=== PATIENT | female | born 1980 | race African-American/Black ===

== ENCOUNTER 2016-10-05 13:30 | Emergency (ER) | payer MEDICAID ==
[~2016-10-05] VITALS: Ht 144.8 cm; Wt 87.5 kg
[2016-10-05] MEDS ORDERED: [UNRECOGNIZED DRUG - REMARK] (13:40)
[2016-10-05] MEDS ORDERED: LAMICTAL25 MG ORAL (13:40)
[2016-10-05] MEDS ORDERED: PRAVACHOL20 MG ORAL (13:40)
[2016-10-05] MEDS ORDERED: AMLODIPINE BES2.5 MG ORAL (13:40)
[2016-10-05] MEDS ORDERED: KEPPRA500 M4 ORAL (13:40)
[2016-10-05] MEDS ORDERED: LORazepam Inj 2mg/ml 1ml IM ONE ×2 (13:45→14:00)
--- NOTE | 2016-10-05 13:51 | Emergency Room Report ---
History of Present Illness General Chief Complaint: Seizure Source: Patient, Significant Other Present Illness HPI Patient 36-year-old female presented after increased have a generalized motor movements. Patient reportedly had increased shakiness this morning. Patient prior history of seizure disorder. She been taking Keppra for seizures. She reports taking Keppra. The patient had been vomiting. She had not been having any fever. Allergies: Coded Allergies: No Known Allergies (Verified , 09/29/07) Patient History Past Medical History: see triage record Last Menstrual Period: Four months ago Depo Now: No Reviewed Nursing Documentation: PMH: Agreed, PSxH: Agreed Nursing Documentation-PMH Hx Hypertension: Yes Hx Seizures: Yes Review of Systems All Other Systems: limited - by poor historian Physical Exam Vital Signs Date Time Temp Pulse Resp B/P (MAP) Pulse Ox O2 Delivery O2 Flow Rate FiO2 10/05/16 13:34 Room Air Sp02 EP Interpretation: reviewed, normal General Appearance: normal inspection, alert, non-toxic, mild distress Head: atraumatic ENT: normal ENT inspection, hearing grossly normal, normal voice Neck: normal inspection, full range of motion, supple, no bony tend Respiratory: normal inspection, lungs clear, normal breath sounds, no respiratory distress, no retraction, no wheezing Cardiovascular #1: regular rate, rhythm, no edema Gastrointestinal: normal inspection, normal bowel sounds, non tender, soft, no guarding, no hernia Genitourinary: no CVA tenderness Musculoskeletal: normal inspection, back normal, normal range of motion Neurologic: normal inspection, alert, responsive, 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 Differential diagnosis included cysticercosis, electrolyte abnormality, pseudoseizure, partial seizure, mass lesion, or cranial hemorrhage. Labs Test 10/05/16 13:55 10/05/16 14:50 White Blood Count 7.7 K/UL (4.8-10.8) Red Blood Count 5.14 M/UL (4.20-5.40) Hemoglobin 15.6 G/DL (12.0-16.0) Hematocrit 46.1 % (37.0-47.0) Mean Corpuscular Volume 90 FL (80-99) Mean Corpuscular Hemoglobin 30.3 PG (27.0-31.0) Mean Corpuscular Hemoglobin Concent 33.8 G/DL (32.0-36.0) Red Cell Distribution Width 11.1 % (11.6-14.8) Platelet Count 229 K/UL (150-450) Mean Platelet Volume 7.9 FL (6.5-10.1) Neutrophils (%) (Auto) 61.9 % (45.0-75.0) Lymphocytes (%) (Auto) 29.8 % (20.0-45.0) Monocytes (%) (Auto) 6.1 % (1.0-10.0) Eosinophils (%) (Auto) 1.2 % (0.0-3.0) Basophils (%) (Auto) 1.1 % (0.0-2.0) Sodium Level 133 mEQ/L (135-145) Potassium Level 2.7 mEQ/L (3.4-4.9) Chloride Level 90 mEQ/L (98-107) Carbon Dioxide Level 25 mEQ/L (20-30) Anion Gap 18 (5-15) Blood Urea Nitrogen 10 mg/dL (7-23) Creatinine 0.8 mg/dL (0.5-0.9) Estimat Glomerular Filtration Rate > 60 mL/min (>60) Glucose Level 424 mg/dL (74-106) Calcium Level 9.4 mg/dL (8.6-10.2) Total Bilirubin 0.8 mg/dL (0.0-1.2) Aspartate Amino Transf (AST/SGOT) 10 U/L (5-40) Alanine Aminotransferase (ALT/SGPT) 7 U/L (3-33) Alkaline Phosphatase 80 U/L (35-104) Total Protein 7.8 g/dL (6.6-8.7) Albumin 4.8 g/dL (3.5-5.2) Globulin 3.0 g/dL Albumin/Globulin Ratio 1.6 (1.0-2.7) EKG Diagnostic Results Rate: tachycardiac Rhythm: NSR ST Segments: no acute changes Rhythm Strip Diag. Results EP Interpretation: yes Rhythm: NSR - 121, no PVC's, no ectopy Last Vital Signs Date Time Temp Pulse Resp B/P (MAP) Pulse Ox O2 Delivery O2 Flow Rate FiO2 10/05/16 13:34 Room Air Status: unchanged Disposition: ADMITTED INPATIENT Condition: Serious IgnacioMiguel Oct 05, 2016 13:51
[2016-10-05] MEDS ORDERED: DiphenhydrAMINE 50mg/ml Inj IVP ONE (14:00)
[2016-10-05 14:14] LABS: BASOPHILS % (AUTO) 1.1 % (0.0-2.0); EOSINOPHILS % (AUTO) 1.2 % (0.0-3.0); LYMPHOCYTES % (AUTO) 29.8 % (20.0-45.0); MEAN CORPUSCULAR HEMOGLOBIN 30.3 PG (27.0-31.0); MEAN CORPUSCULAR HGB CONC 33.8 G/DL (32.0-36.0); MEAN CORPUSCULAR VOLUME 90 FL (80-99); MEAN PLATELET VOLUME 7.9 FL (6.5-10.1); MONOCYTES % (AUTO) 6.1 % (1.0-10.0); NEUTROPHILS % (AUTO) 61.9 % (45.0-75.0); PLATELET COUNT 229 K/UL (150-450); RED BLOOD COUNT 5.14 M/UL (4.20-5.40); RED CELL DISTRIBUTION WIDTH 11.1 % (11.6-14.8); WHITE BLOOD COUNT 7.7 K/UL (4.8-10.8)
[2016-10-05 14:28] VITALS: BP 126/94
[2016-10-05 15:18] LABS: ALANINE AMINOTRANSFERASE 7 U/L (3-33); ALBUMIN/GLOBULIN RATIO 1.6 (1.0-2.7); ANION GAP 18 (5-15); ASPARTATE AMINO TRANSFERASE 10 U/L (5-40); CALCIUM 9.4 mg/dL (8.6-10.2); CARBON DIOXIDE 25 mEQ/L (20-30); CHLORIDE 90 mEQ/L (98-107); CREATININE 0.8 mg/dL (0.5-0.9); GLOMERULAR FILTRATION RATE > 60 mL/min (>60); HEMOLYSIS 11; SODIUM 133 mEQ/L (135-145); TOTAL PROTEIN 7.8 g/dL (6.6-8.7)
[2016-10-05 15:21] LABS: POTASSIUM 2.7 mEQ/L (3.4-4.9)
[2016-10-05] MEDS ORDERED: Miralax 17gm pkt ORAL PRN (18:30)
[2016-10-05] MEDS ORDERED: Mylanta II UD 30ml ORAL PRN (18:30)
[2016-10-05] MEDS ORDERED: LORazepam Inj 2mg/ml 1ml IV PRN (18:30)
[2016-10-05] MEDS ORDERED: Morphine Sulfate 2mg/ml Inj IVP PRN (18:30)
[2016-10-05] MEDS ORDERED: Zolpidem 5mg tab ORAL PRN (18:30)
[2016-10-05 18:57] VITALS: BP 109/93
[2016-10-05] MEDS ORDERED: Heparin 5000 units/ml inj SUBQ SCH (21:00)
== END 2016-10-05 19:07 | disposition short-term general hospital (02) ==
LOC: EMR 13:45
DX: G40.909 Epilepsy, unspecified, not intractable, without status epilepticus (principal); I10 Essential (primary) hypertension; R00.0 Tachycardia, unspecified
CPT/HCPCS: 36415; 80053; 82962; 85025; 96360; 96361; 96372; 96375; 99285; J1200; J3480; J8499

== ENCOUNTER 2016-10-11 18:31 | Inpatient (IN) | payer MEDICAID ==
[~2016-10-11] VITALS: Ht 162.6 cm; Wt 85.7 kg
[2016-10-11 18:25] VITALS: BP 130/90
[~2016-10-11 18:31] MED LIST: AMLODIPINE BES2.5 MG ORAL; KEPPRA500 M4 ORAL; LAMICTAL25 MG ORAL; LORazepam Inj 2mg/ml 1ml IV ONE; PRAVACHOL20 MG ORAL; [UNRECOGNIZED DRUG - REMARK]; levETIRAcetam 500 MG in D5W 110 ML IV ONE
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
[2016-10-11] MEDS ORDERED: levETIRAcetam 500mg vial IV ONE (18:34)
[2016-10-11 19:05] VITALS: BP 142/86
[2016-10-11 20:14] LABS: ALANINE AMINOTRANSFERASE 6 U/L (3-33); ALBUMIN/GLOBULIN RATIO 1.4 (1.0-2.7); ANION GAP 15 (5-15); ASPARTATE AMINO TRANSFERASE 12 U/L (5-40); CALCIUM 10.3 mg/dL (8.6-10.2); CARBON DIOXIDE 26 mEQ/L (20-30); CHLORIDE 90 mEQ/L (98-107); CREATININE 0.9 mg/dL (0.5-0.9); GLOMERULAR FILTRATION RATE > 60 mL/min (>60); HEMOLYSIS 57; POTASSIUM 3.4 mEQ/L (3.4-4.9); SODIUM 131 mEQ/L (135-145); TOTAL PROTEIN 7.7 g/dL (6.6-8.7); VALPROIC ACID < 3 ug/mL (50-100)
[2016-10-11] MEDS ORDERED: LORazepam Inj 2mg/ml 1ml IV ONE ×2 (20:30→22:45)
[2016-10-11] MEDS ORDERED: Mylanta II UD 30ml ORAL PRN (21:15)
[2016-10-11] MEDS ORDERED: LORazepam Inj 2mg/ml 1ml IV PRN (21:15)
[2016-10-11] MEDS ORDERED: Zolpidem 5mg tab ORAL PRN (21:15)
[2016-10-11] MEDS ORDERED: Miralax 17gm pkt ORAL PRN (21:15)
[2016-10-11 21:16] LABS: BASOPHILS % (AUTO) 1.4 % (0.0-2.0); EOSINOPHILS % (AUTO) 2.4 % (0.0-3.0); LYMPHOCYTES % (AUTO) 26.8 % (20.0-45.0); MEAN CORPUSCULAR HEMOGLOBIN 31.2 PG (27.0-31.0); MEAN CORPUSCULAR HGB CONC 34.1 G/DL (32.0-36.0); MEAN CORPUSCULAR VOLUME 91 FL (80-99); MEAN PLATELET VOLUME 7.6 FL (6.5-10.1); MONOCYTES % (AUTO) 5.3 % (1.0-10.0); NEUTROPHILS % (AUTO) 64.1 % (45.0-75.0); PLATELET COUNT 305 K/UL (150-450); RED BLOOD COUNT 4.85 M/UL (4.20-5.40); RED CELL DISTRIBUTION WIDTH 12.1 % (11.6-14.8); WHITE BLOOD COUNT 10.1 K/UL (4.8-10.8)
[2016-10-11] MEDS ORDERED: CHLORTHALIDONE25 MG ORAL (21:57)
[2016-10-11] MEDS ORDERED: FLUOXETINE HCL10 MG ORAL (21:57)
[2016-10-11] MEDS ORDERED: LAMICTAL100 MG ORAL (21:57)
[2016-10-11] MEDS ORDERED: AMLODIPINE BESY10 MG ORAL (21:57)
[2016-10-11] MEDS ORDERED: FERROUS SULFAT325 MG ORAL (21:57)
[2016-10-11] MEDS ORDERED: PRAVASTATIN SOD20 M1 ORAL (21:57)
[2016-10-11] MEDS ORDERED: METFORMIN HCL500 M1 ORAL (21:57)
[2016-10-11] MEDS ORDERED: KEPPRA500 M4 ORAL (21:57)
[2016-10-11 22:10] VITALS: BP 145/91
[2016-10-11 23:00] VITALS: BP 140/72
[2016-10-12] MEDS ORDERED: LAMICTAL150 MG ORAL (01:14)
[2016-10-12] MEDS: Morphine Sulfate 2mg/ml Inj IVP PRN ×4 (03:47→23:11)
[2016-10-12 03:53] VITALS: BP 127/80
[2016-10-12 05:50] LABS: BASOPHILS % (AUTO) 0.7 % (0.0-2.0); EOSINOPHILS % (AUTO) 2.8 % (0.0-3.0); LYMPHOCYTES % (AUTO) 27.2 % (20.0-45.0); MEAN CORPUSCULAR HEMOGLOBIN 30.9 PG (27.0-31.0); MEAN CORPUSCULAR HGB CONC 33.7 G/DL (32.0-36.0); MEAN CORPUSCULAR VOLUME 92 FL (80-99); MEAN PLATELET VOLUME 6.9 FL (6.5-10.1); MONOCYTES % (AUTO) 7.3 % (1.0-10.0); NEUTROPHILS % (AUTO) 62.1 % (45.0-75.0); PLATELET COUNT 414 K/UL (150-450); RED BLOOD COUNT 4.46 M/UL (4.20-5.40); RED CELL DISTRIBUTION WIDTH 12.1 % (11.6-14.8)
[2016-10-12 05:55] LABS: ALANINE AMINOTRANSFERASE 5 U/L (3-33); ALBUMIN/GLOBULIN RATIO 1.3 (1.0-2.7); ANION GAP 16 (5-15); ASPARTATE AMINO TRANSFERASE 10 U/L (5-40); CALCIUM 9.4 mg/dL (8.6-10.2); CARBON DIOXIDE 24 mEQ/L (20-30); CHLORIDE 97 mEQ/L (98-107); CREATININE 0.6 mg/dL (0.5-0.9); GLOMERULAR FILTRATION RATE > 60 mL/min (>60); HEMOLYSIS 5; POTASSIUM 2.9 mEQ/L (3.4-4.9); SODIUM 137 mEQ/L (135-145)
[2016-10-12 08:00] VITALS: BP 129/77
[2016-10-12] MEDS: Heparin 5000 units/ml inj SUBQ SCH ×2 (08:38→21:31)
--- NOTE | 2016-10-12 09:50 | Diagnostic Imaging Report ---
Indication: Seizure Technique: Contiguous 5 mm thick transaxial imaging of the head obtained in a Siemens Sensation [address] scanner. Soft tissue and bone windows generated. Total Dose length Product (DLP): [address] Dose Index Volume (CTDIvol): 70.38, 0.15 mGy Comparison: 10/12/14, 03/24/11 Findings: The size and configuration of the cortical sulci, basal cisterns, and ventricles are within normal limits for age. There is no mass effect, midline shift, or edema identified. There is no evidence of acute hemorrhage or abnormal extra-axial fluid collections. There is a tiny well-circumscribed cystic focus posterior aspect of the caudate possibly communicating with the anterior horn of the right lateral ventricle. The nature of this cystic focus is unknown. This could be a Virchow-Teo space which is a normal finding. This could be old lacunar infarct or other post-insult cystic focus. The finding is unchanged from 2012. The bones and soft tissues are unremarkable. Impression: No mass effect, edema or acute bleed. 4 mm cystic focus posterior aspect of the right caudate. Unchanged from 2014 and 2012. Discussion as above The CT scanner at [facility] is accredited by the [employer] and the scans are performed using dose optimization techniques as appropriate to a performed exam including Automatic Exposure control.
--- NOTE | 2016-10-12 10:56 | History and Physical ---
History of Present Illness General Date patient seen: Oct 12, 2016 Reason for Hospitalization: Seizure Present Illness HPI 36 year old female with hx of chronic seizures on lamictal, keppafor a few years brought in for uncontrolled seizures. she was given IM versed 5mg by paramedics which stopped initial seizure, but she continued seizure en route described as mild shaking of extremities She is admitted for uncontrolled seizures. Allergies: Coded Allergies: No Known Allergies (Verified , 09/29/07) UNABLE TO ASSESS (Unverified , 10/11/16) Medication History Scheduled Amlodipine Besylate* (Amlodipine Besylate*), Unknown Dose ORAL DAILY, (Reported) Amlodipine Besylate* (Amlodipine Besylate*), 10 MG ORAL DAILY, (Reported) Chlorthalidone* (Chlorthalidone*), 25 MG ORAL DAILY, (Reported) Ferrous Sulfate* (Ferrous Sulfate*), 325 MG ORAL THREE TIMES A DAY, (Reported) Fluoxetine Hcl* (Fluoxetine Hcl*), 10 MG ORAL DAILY, (Reported) Lamotrigine* (Lamictal*), Unknown Dose ORAL HS, (Reported) Lamotrigine* (Lamictal*), 100 MG ORAL DAILY, (Reported) Lamotrigine* (Lamictal*), 200 MG ORAL QPM, (Reported) Levetiracetam (Keppra), 500 MG ORAL EVERY 12 HOURS, (Reported) Metformin Hcl* (Metformin Hcl*), 500 MG ORAL TWICE A DAY, (Reported) Pravastatin Sod* (Pravastatin Sod*), 40 MG ORAL BEDTIME, (Reported) Miscellaneous Medications ["water pill"], (Reported) Patient History Healthcare decision maker N Resuscitation status Full Code Advanced Directive on File Past Medical/Surgical History Past Medical/Surgical History: (1) Seizure disorder (2) Hyperglycemia Review of Systems All Other Systems: negative except mentioned in HPI Physical Exam General Appearance: WD/WN Lines, tubes and drains: peripheral, central line HEENT: normocephalic, atraumatic Neck: non-tender, supple Respiratory/Chest: chest wall non-tender, lungs clear Breasts: no masses Cardiovascular/Chest: normal rate, regular rhythm, regularly irregular Abdomen: normal bowel sounds, non tender Genitourinary/Rectal: normal genital exam, normal rectal exam Extremities: normal range of motion Last 24 Hour Vital Signs Date Time Temp Pulse Resp B/P (MAP) Pulse Ox O2 Delivery O2 Flow Rate FiO2 10/12/16 08:36 104 127/80 10/12/16 08:00 101 10/12/16 08:00 97.9 102 18 129/77 99 Nasal Cannula 2.0 10/12/16 03:53 97.5 104 19 127/80 99 Non-Rebreather 15.0 10/12/16 03:50 109 10/12/16 00:01 102 10/11/16 23:00 97.2 113 20 140/72 100 Non-Rebreather 15.0 10/11/16 22:47 105 23 145/91 100 Non-Rebreather 15.0 10/11/16 22:10 105 23 145/91 100 Non-Rebreather 15.0 10/11/16 19:05 104 18 142/86 100 Non-Rebreather 15.0 10/11/16 18:25 118 18 130/90 100 Room Air 10/11/16 18:25 118 18 130/90 100 Room Air 10/11/16 18:25 118 18 Room Air Laboratory Tests Test 10/11/16 19:00 10/11/16 21:05 10/12/16 04:05 Sodium Level 131 mEQ/L (135-145) L 137 mEQ/L (135-145) Potassium Level 3.4 mEQ/L (3.4-4.9) 2.9 mEQ/L (3.4-4.9) L Chloride Level 90 mEQ/L (98-107) L 97 mEQ/L (98-107) L Carbon Dioxide Level 26 mEQ/L (20-30) 24 mEQ/L (20-30) Anion Gap 15 (5-15) 16 (5-15) H Blood Urea Nitrogen 9 mg/dL (7-23) 6 mg/dL (7-23) L Creatinine 0.9 mg/dL (0.5-0.9) 0.6 mg/dL (0.5-0.9) Estimat Glomerular Filtration Rate > 60 mL/min (>60) > 60 mL/min (>60) Glucose Level 395 mg/dL (74-106) H 250 mg/dL (74-106) #H Calcium Level 10.3 mg/dL (8.6-10.2) H 9.4 mg/dL (8.6-10.2) Total Bilirubin 0.5 mg/dL (0.0-1.2) 0.5 mg/dL (0.0-1.2) Aspartate Amino Transf (AST/SGOT) 12 U/L (5-40) 10 U/L (5-40) Alanine Aminotransferase (ALT/SGPT) 6 U/L (3-33) 5 U/L (3-33) Alkaline Phosphatase 64 U/L (35-104) 62 U/L (35-104) Total Protein 7.7 g/dL (6.6-8.7) 7.0 g/dL (6.6-8.7) Albumin 4.6 g/dL (3.5-5.2) 4.0 g/dL (3.5-5.2) Globulin 3.1 g/dL 3.0 g/dL Albumin/Globulin Ratio 1.4 (1.0-2.7) 1.3 (1.0-2.7) Valproic Acid (Depakene) Level < 3 ug/mL (50-100) L White Blood Count 10.1 K/UL (4.8-10.8) 9.0 K/UL (4.8-10.8) Red Blood Count 4.85 M/UL (4.20-5.40) 4.46 M/UL (4.20-5.40) Hemoglobin 15.1 G/DL (12.0-16.0) 13.8 G/DL (12.0-16.0) Hematocrit 44.4 % (37.0-47.0) 40.9 % (37.0-47.0) Mean Corpuscular Volume 91 FL (80-99) 92 FL (80-99) Mean Corpuscular Hemoglobin 31.2 PG (27.0-31.0) H 30.9 PG (27.0-31.0) Mean Corpuscular Hemoglobin Concent 34.1 G/DL (32.0-36.0) 33.7 G/DL (32.0-36.0) Red Cell Distribution Width 12.1 % (11.6-14.8) 12.1 % (11.6-14.8) Platelet Count 305 K/UL (150-450) 414 K/UL (150-450) Mean Platelet Volume 7.6 FL (6.5-10.1) 6.9 FL (6.5-10.1) Neutrophils (%) (Auto) 64.1 % (45.0-75.0) 62.1 % (45.0-75.0) Lymphocytes (%) (Auto) 26.8 % (20.0-45.0) 27.2 % (20.0-45.0) Monocytes (%) (Auto) 5.3 % (1.0-10.0) 7.3 % (1.0-10.0) Eosinophils (%) (Auto) 2.4 % (0.0-3.0) 2.8 % (0.0-3.0) Basophils (%) (Auto) 1.4 % (0.0-2.0) 0.7 % (0.0-2.0) Height (Feet): 5 Height (Inches): 4.00 Weight (Pounds): 189 Medications Current Medications Medications (Trade) Dose Ordered Sig/Dylan Route PRN Reason Start Time Stop Time Status Last Admin Dose Admin Acetaminophen (Tylenol) 650 mg Q4H PRN ORAL fever 10/11/16 21:15 11/10/16 21:14 Al Hydroxide/Mg Hydroxide (Mylanta II) 30 ml Q6H PRN ORAL dyspepsia 10/11/16 21:15 11/10/16 21:14 Amlodipine Besylate (Norvasc) 5 mg DAILY ORAL 10/12/16 09:00 11/11/16 08:59 10/12/16 08:36 Dextrose (Dextrose 50%) STAT PRN IV Hypoglycemia 10/11/16 21:15 11/10/16 21:14 Dextrose (Dextrose 50%) STAT PRN IV Hypoglycemia 10/12/16 08:30 11/11/16 08:29 Heparin Sodium (Porcine) (Heparin 5000 units/ml) 5,000 units EVERY 12 HOURS SUBQ 10/12/16 09:00 11/11/16 08:59 10/12/16 08:38 Insulin Aspart (NovoLOG) BEFORE MEALS AND HS SUBQ 10/12/16 11:30 11/11/16 11:29 Levetiracetam (Keppra) 500 mg EVERY 12 HOURS ORAL 10/12/16 09:00 11/11/16 08:59 10/12/16 08:36 Lorazepam (Ativan 2mg/ml 1ml) 2 mg Q1H PRN IV seizures 10/11/16 21:15 10/18/16 21:14 Morphine Sulfate (Morphine Sulfate) 1 mg Q4H PRN IVP For Pain 10/11/16 21:15 10/18/16 21:14 10/12/16 10:37 Ondansetron HCl (Zofran) 4 mg Q6H PRN IVP Nausea & Vomiting 10/11/16 21:15 11/10/16 21:14 Polyethylene Glycol (Miralax) 17 gm HSPRN PRN ORAL Constipation 10/11/16 21:15 11/10/16 21:14 Zolpidem Tartrate (Ambien) 5 mg HSPRN PRN ORAL Insomnia 10/11/16 21:15 10/18/16 21:14 Assessment/Plan Problem List: (1) Uncontrolled seizures ICD Codes: R56.9 - Unspecified convulsions SNOMED: 12973394 (2) Diabetes mellitus ICD Codes: E11.9 - Type 2 diabetes mellitus without complications SNOMED: 48862275 (3) HTN (hypertension) ICD Codes: I10 - Essential (primary) hypertension SNOMED: 43965881 Assessment/Plan Neuro evaluation sliding scale resume previous seizure meds dc home when cleared by neuro. KIM MOORE Oct 12, 2016 10:56
--- NOTE | 2016-10-12 11:09 | Diagnostic Imaging Report ---
Indication: Dyspnea Comparison: 10/12/14 A single view chest radiograph was obtained. Findings: The heart is prominent in size. Lung volumes are low. No obvious infiltrate identified. Bones are unremarkable. Impression: No acute disease
[2016-10-12 12:00] VITALS: BP 118/80
[2016-10-12] MEDS: NovoLOG Insulin Flexpen SUBQ SCH ×3 (12:04→21:00)
[2016-10-12 16:00] VITALS: BP 124/75
[2016-10-12] MEDS ORDERED: LaMICtal 150mg tab ORAL SCH (16:30)
[2016-10-12 20:00] VITALS: BP 131/82
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
[2016-10-13] VITALS: BP 120/74
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
[2016-10-13 04:00] VITALS: BP 128/88
[2016-10-13] MEDS: NovoLOG Insulin Flexpen SUBQ SCH ×4 (06:13→21:22)
[2016-10-13 08:00] VITALS: BP 124/94
[2016-10-13] MEDS: FLUoxetine 10mg cap ORAL SCH (08:57)
[2016-10-13] MEDS: Heparin 5000 units/ml inj SUBQ SCH ×2 (08:59→21:20)
--- NOTE | 2016-10-13 10:55 | Pulmonology Progress Note ---
Assessment/Plan Problems: (1) Uncontrolled seizures (2) Diabetes mellitus (3) HTN (hypertension) Assessment/Plan neuro consult appreciated meds adjusted dc home when ok with neuro. MRI pending. Subjective ROS Limited/Unobtainable: No Constitutional: Reports: no symptoms HEENT: Repors: no symptoms Respiratory: Reports: no symptoms Allergies: Coded Allergies: No Known Allergies (Verified , 09/29/07) UNABLE TO ASSESS (Unverified , 10/11/16) Objective Last 24 Hour Vital Signs Date Time Temp Pulse Resp B/P (MAP) Pulse Ox O2 Delivery O2 Flow Rate FiO2 10/13/16 08:57 84 128/88 10/13/16 08:00 86 10/13/16 08:00 97.5 98 20 124/94 98 Room Air 10/13/16 04:00 98.3 98 20 128/88 98 Nasal Cannula 2.0 10/13/16 04:00 84 10/13/16 00:00 97.9 16 120/74 99 Nasal Cannula 2.0 10/13/16 00:00 90 10/12/16 20:00 99 10/12/16 20:00 97.7 107 20 131/82 100 Nasal Cannula 2.0 10/12/16 19:18 98.1 10/12/16 16:34 98.1 10/12/16 16:00 102 10/12/16 16:00 98.1 67 20 124/75 100 Nasal Cannula 2.0 10/12/16 12:16 97 10/12/16 12:00 98.1 96 20 118/80 98 Nasal Cannula 2.0 General Appearance: WD/WN HEENT: normocephalic, atraumatic Respiratory/Chest: chest wall non-tender, lungs clear, chest wall tender Breasts: no masses Cardiovascular: regular rhythm Abdomen: soft, non tender Extremities: no cyanosis, no clubbing Current Medications Medications (Trade) Dose Ordered Sig/Dylan Route PRN Reason Start Time Stop Time Status Last Admin Dose Admin Acetaminophen (Tylenol) 650 mg Q4H PRN ORAL fever 10/11/16 21:15 11/10/16 21:14 10/13/16 02:47 Al Hydroxide/Mg Hydroxide (Mylanta II) 30 ml Q6H PRN ORAL dyspepsia 10/11/16 21:15 11/10/16 21:14 Amlodipine Besylate (Norvasc) 10 mg DAILY ORAL 10/13/16 09:00 11/12/16 08:59 10/13/16 08:57 Chlorthalidone (Chlorthalidone) 25 mg DAILY ORAL 10/13/16 09:00 11/12/16 08:59 10/13/16 08:56 Dextrose (Dextrose 50%) STAT PRN IV Hypoglycemia 10/11/16 21:15 11/10/16 21:14 Dextrose (Dextrose 50%) STAT PRN IV Hypoglycemia 10/12/16 08:30 11/11/16 08:29 Fluoxetine HCl (PROzac) 10 mg DAILY ORAL 10/13/16 09:00 11/12/16 08:59 10/13/16 08:57 Heparin Sodium (Porcine) (Heparin 5000 units/ml) 5,000 units EVERY 12 HOURS SUBQ 10/12/16 09:00 11/11/16 08:59 10/13/16 08:59 Insulin Aspart (NovoLOG) BEFORE MEALS AND HS SUBQ 10/12/16 11:30 11/11/16 11:29 10/13/16 06:13 Lamotrigine (LaMICtal) 100 mg EVERY 12 HOURS ORAL 10/13/16 09:00 11/12/16 08:59 10/13/16 09:43 Levetiracetam (Keppra) 750 mg EVERY 12 HOURS ORAL 10/13/16 09:00 11/12/16 08:59 10/13/16 08:57 Lorazepam (Ativan 2mg/ml 1ml) 2 mg Q1H PRN IV seizures 10/11/16 21:15 10/18/16 21:14 10/13/16 06:09 Morphine Sulfate (Morphine Sulfate) 1 mg Q4H PRN IVP For Pain 10/11/16 21:15 10/18/16 21:14 10/12/16 23:11 Ondansetron HCl (Zofran) 4 mg Q6H PRN IVP Nausea & Vomiting 10/11/16 21:15 11/10/16 21:14 Polyethylene Glycol (Miralax) 17 gm HSPRN PRN ORAL Constipation 10/11/16 21:15 11/10/16 21:14 Zolpidem Tartrate (Ambien) 5 mg HSPRN PRN ORAL Insomnia 10/11/16 21:15 9/5/17 21:14 KIM MOORE Oct 13, 2016 10:55
[2016-10-13] MEDS ORDERED: KEPPRA500 MG ORAL (10:57)
[2016-10-13] MEDS ORDERED: LAMICTAL100 MG ORAL (10:57)
[2016-10-13] MEDS: Morphine Sulfate 2mg/ml Inj IVP PRN ×3 (11:22→22:28)
--- NOTE | 2016-10-13 11:39 | Diagnostic Imaging Report ---
Indication: Seizure Technique: The head was imaged in a 1.5 Ivon magnet. Sequences obtained include sagittal and axial T1 FLAIR, axial T2 fast spin echo with fat saturation, axial T2 FLAIR, diffusion and ADC map. Coronal T2 FLAIR and T1 FSPGR through the hippocampus performed. Gadolinium-enhanced axial and coronal T1 FLAIR obtained also. Comparison: CT head 10/11/16 Findings: The size, contour, and configuration of the sulci, ventricles, and basal cisterns appear normal. Quintero-white differentiation is normal. Tiny well-circumscribed bilateral 2-3 mm cystic foci noted adjacent to the anterior aspects of the lateral ventricles (for example image 12, series 6). There is no associated enhancement. These may be normal perivascular or Virchow-Teo spaces. These are doubtful to be significant clinically. The T1 volumetric sequence through the hippocampus is nondiagnostic because of motion. The hippocampus appears relatively normal bilaterally without obvious asymmetry in signal or volume. There is no restricted diffusion or susceptibility. There is no mass effect, midline shift, edema, or hemorrhage. There are no abnormal extra-axial or intra-axial fluid collections. The corpus callosum is unremarkable. The brainstem and cerebellum are unremarkable. The sella is unremarkable. Bone marrow signal within the visualized osseous structures appears age appropriate and unremarkable otherwise. There is mild T2 hyperintense mucosal thickening in the ethmoid sinus. No abnormal enhancement is identified. Impression: Negative MRI brain with and without contrast. Mild ethmoid sinusitis. Limited evaluation due to motion
[2016-10-13 11:57] VITALS: BP 110/77
[2016-10-13 16:00] VITALS: BP 138/81
[2016-10-13 20:00] VITALS: BP 119/87
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
[2016-10-14] VITALS: BP 126/78
[2016-10-14 04:00] VITALS: BP 124/79
[2016-10-14] MEDS: NovoLOG Insulin Flexpen SUBQ SCH ×2 (06:33→12:17)
[2016-10-14 08:44] VITALS: BP 121/82
[2016-10-14] MEDS: FLUoxetine 10mg cap ORAL SCH (08:59)
[2016-10-14] MEDS: Heparin 5000 units/ml inj SUBQ SCH (09:03)
--- NOTE | 2016-10-14 11:16 | Pulmonology Progress Note ---
Assessment/Plan Problems: (1) Uncontrolled seizures (2) Diabetes mellitus (3) HTN (hypertension) Assessment/Plan neuro consult appreciated meds adjusted dc home when ok with neuro. MRI reviewed Subjective ROS Limited/Unobtainable: No HEENT: Repors: no symptoms Allergies: Coded Allergies: No Known Allergies (Verified , 09/29/07) UNABLE TO ASSESS (Unverified , 10/11/16) Objective Last 24 Hour Vital Signs Date Time Temp Pulse Resp B/P (MAP) Pulse Ox O2 Delivery O2 Flow Rate FiO2 10/14/16 09:01 89 121/82 10/14/16 08:44 98.2 89 20 121/82 98 Room Air 10/14/16 07:48 92 10/14/16 04:00 82 10/14/16 04:00 99.0 86 20 124/79 99 Nasal Cannula 10/14/16 00:00 99.3 91 20 126/78 99 Nasal Cannula 10/14/16 00:00 85 10/13/16 20:31 95 10/13/16 20:00 99.5 94 20 119/87 99 Nasal Cannula 10/13/16 16:00 94 10/13/16 16:00 98.2 98 18 138/81 99 Nasal Cannula 10/13/16 12:00 94 10/13/16 11:57 97.7 86 18 110/77 98 Room Air General Appearance: WD/WN, no acute distress HEENT: normocephalic, atraumatic Respiratory/Chest: chest wall non-tender, lungs clear Breasts: no masses Cardiovascular: normal rate Abdomen: normal bowel sounds, soft, non tender Genitourinary: normal external genitalia Neurologic/Psychiatric: 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 Complete Current Medications Medications (Trade) Dose Ordered Sig/Dylan Route PRN Reason Start Time Stop Time Status Last Admin Dose Admin Acetaminophen (Tylenol) 650 mg Q4H PRN ORAL fever 10/11/16 21:15 11/10/16 21:14 10/14/16 09:02 Al Hydroxide/Mg Hydroxide (Mylanta II) 30 ml Q6H PRN ORAL dyspepsia 10/11/16 21:15 11/10/16 21:14 Amlodipine Besylate (Norvasc) 10 mg DAILY ORAL 10/13/16 09:00 11/12/16 08:59 10/14/16 09:01 Chlorthalidone (Chlorthalidone) 25 mg DAILY ORAL 10/13/16 09:00 11/12/16 08:59 10/14/16 09:00 Dextrose (Dextrose 50%) STAT PRN IV Hypoglycemia 10/11/16 21:15 11/10/16 21:14 Dextrose (Dextrose 50%) STAT PRN IV Hypoglycemia 10/12/16 08:30 11/11/16 08:29 Fluoxetine HCl (PROzac) 10 mg DAILY ORAL 10/13/16 09:00 11/12/16 08:59 10/14/16 08:59 Heparin Sodium (Porcine) (Heparin 5000 units/ml) 5,000 units EVERY 12 HOURS SUBQ 10/12/16 09:00 11/11/16 08:59 10/14/16 09:03 Insulin Aspart (NovoLOG) BEFORE MEALS AND HS SUBQ 10/12/16 11:30 11/11/16 11:29 10/14/16 06:33 Lamotrigine (LaMICtal) 100 mg EVERY 12 HOURS ORAL 10/13/16 09:00 11/12/16 08:59 10/14/16 09:00 Levetiracetam (Keppra) 750 mg EVERY 12 HOURS ORAL 10/13/16 09:00 11/12/16 08:59 10/14/16 09:00 Lorazepam (Ativan 2mg/ml 1ml) 2 mg Q1H PRN IV seizures 10/11/16 21:15 10/18/16 21:14 10/13/16 06:09 Morphine Sulfate (Morphine Sulfate) 1 mg Q4H PRN IVP For Pain 10/11/16 21:15 10/18/16 21:14 10/13/16 22:28 Ondansetron HCl (Zofran) 4 mg Q6H PRN IVP Nausea & Vomiting 10/11/16 21:15 11/10/16 21:14 Polyethylene Glycol (Miralax) 17 gm HSPRN PRN ORAL Constipation 10/11/16 21:15 11/10/16 21:14 Zolpidem Tartrate (Ambien) 5 mg HSPRN PRN ORAL Insomnia 10/11/16 21:15 10/18/16 21:14 KIM MOORE Oct 14, 2016 11:16
[2016-10-14 12:00] VITALS: BP 117/75
--- NOTE | 2016-10-15 12:49 | Cardiology Report ---
APPROVED REPORT EKG Measurement Heart [id number] Sinus tachycardia Possible Left atrial enlargement Low voltage QRS Nonspecific T wave abnormality Abnormal ECG
[2016-10-18] MEDS ORDERED: METFORMIN HCL500 M1 ORAL (12:29)
--- NOTE | 2016-10-18 12:35 | Discharge Summary ---
Discharge Summary Hospital Course Date of Admission Oct 11, 2016 at 20:35 Date of Discharge Oct 14, 2016 at 13:50 Admitting Diagnosis SEIZURES HPI Lu Ibarra is a 36 year old female who was admitted on Oct 11, 2016 at 20: 35 for Seizures Hospital Course dc summary #[id number] Discharge Medications New Medications: Metformin Hcl* (Metformin Hcl*) 500 Mg Tablet 500 MG ORAL TWICE A DAY, #60 TAB Lamotrigine* (Lamictal*) 100 Mg Tablet 100 MG ORAL EVERY 12 HOURS for 30 Days, TAB Levetiracetam (Keppra) 250 Mg Tablet 750 MG ORAL EVERY 12 HOURS for 30 Days, TAB Continued Medications: Amlodipine Besylate* (Amlodipine Besylate*) 10 Mg Tablet 10 MG ORAL DAILY, TAB Chlorthalidone* (Chlorthalidone*) 25 Mg Tablet 25 MG ORAL DAILY, TAB Fluoxetine Hcl* (Fluoxetine Hcl*) 10 Mg Capsule 10 MG ORAL DAILY, CAP Pravastatin Sod* (Pravastatin Sod*) 20 Mg Tablet 40 MG ORAL BEDTIME, TAB Discharge Condition Upon Discharge: stable Discharge Disposition Patient was discharged to Home (01) Discharge Diagnoses: Discharge Instructions Discharge Instructions Special Instructions I have been assigned to complete a D/C Summary on this account. I was not involved in the patient management Sandra Talavera NP (Vanchtein) Oct 18, 2016 12:35
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
== END 2016-10-14 13:50 | disposition home or self-care (01) | DRG 53 ==
LOC: EDBD 18:31 → EMR 19:01 → 2W 20:35 → EDBEDREQ 21:07 → EDBEDREQSVC 21:08 → EDBEDREQ 21:29
DX: G40.409 Other generalized epilepsy and epileptic syndromes, not intractable, without status epilepticus (principal); E11.65 Type 2 diabetes mellitus with hyperglycemia; I10 Essential (primary) hypertension; R29.2 Abnormal reflex; F32.9 Major depressive disorder, single episode, unspecified
CPT/HCPCS: 36415; 70450; 70553; 71010; 80053; 80164; 80299; 82962; 85025; 87081; 93005; 99285; A9585; J1815

== ENCOUNTER 2017-12-22 21:13 | Emergency (ER) | payer MEDICAID ==
[~2017-12-22] VITALS: Ht 144.8 cm; Wt 86.2 kg
[~2017-12-22 21:13] MED LIST changes: +AMLODIPINE BESY10 MG ORAL; +CHLORTHALIDONE25 MG ORAL; +FERROUS SULFAT325 MG ORAL; +FLUOXETINE HCL10 MG ORAL; +KEPPRA500 MG ORAL; +LAMICTAL100 MG ORAL; +LAMICTAL150 MG ORAL; -LORazepam Inj 2mg/ml 1ml IV ONE; +METFORMIN HCL500 M1 ORAL; +PRAVASTATIN SOD20 M1 ORAL; -levETIRAcetam 500 MG in D5W 110 ML IV ONE
[2017-12-22 21:30] VITALS: BP 120/70
[2017-12-22] MEDS ORDERED: Sodium Chloride 500ML 500 ML IV ONE (21:42)
[2017-12-22] MEDS ORDERED: Ketorolac 30mg Inj IV ONE (21:45)
[2017-12-22] MEDS ORDERED: LORazepam Inj 2mg/ml 1ml IV ONE (21:45)
--- NOTE | 2017-12-22 21:45 | Emergency Room Report ---
History of Present Illness General Chief Complaint: Seizure Source: Family Member Present Illness HPI The patient presents to the emergency department with right shoulder and right neck pain for 3 days. While she was in triage she had a generalized tonic- clonic seizure. She has a history of seizures. Her medicines of been adjusted recently. She supposed be taking primidone, Lamictal. It's unknown whether she should be taking Keppra also. She's had difficulty filling her medications but her significant other says that she has been taking her medication. She's had multiple CTs done. She's uncertain what the neck pain is about. She denies any trauma. There is no fevers, chills, nausea, vomiting, diarrhea. The patient's on her period right now. The history is variable whether asking the or the patient. However they 're clear that they've been having difficulty filling her medications even though she reports that she took her medications today. Allergies: Coded Allergies: No Known Allergies (Verified , 09/29/07) UNABLE TO ASSESS (Unverified , 10/11/16) Patient History Past Medical History: see triage record Social History: Reports: smoking Social History Narrative Last Menstrual Period: ongoing Now: No Reviewed Nursing Documentation: PMH: Agreed; PSxH: Agreed Nursing Documentation-PMH Hx Hypertension: Yes - hypertension, hyperlipidemia, Hx Diabetes: Yes Hx Cancer: No Hx Gastrointestinal Problems: No Hx Neurological Problems: Yes - Seizure Hx Seizures: Yes Hx Dizziness: Yes Hx Headaches: Yes Review of Systems All Other Systems: negative except mentioned in HPI Physical Exam Vital Signs Date Time Temp Pulse Resp B/P (MAP) Pulse Ox O2 Delivery O2 Flow Rate FiO2 12/22/17 21:28 98.1 100 17 120/70 100 Nasal Cannula 2.0 Sp02 EP Interpretation: reviewed, normal General Appearance: well appearing, no apparent distress, other - GCS 13 eyes closed, not able to state what happened, Postictal Head: normocephalic Eyes: bilateral eye normal inspection, bilateral eye PERRL, bilateral eye EOMI ENT: moist mucus membranes Neck: supple, no bony tend, tender - R mucles Respiratory: chest non-tender, lungs clear, normal breath sounds Cardiovascular #1: regular rate, rhythm Cardiovascular #2: 2+ radial (R) Gastrointestinal: normal inspection, normal bowel sounds, non tender, no mass, non-distended Musculoskeletal: back normal, gait/station normal, normal range of motion Neurologic: alert, motor strength/tone normal, DTRs symmetric, sensory intact, oriented - X1 Psychiatric: depressed affect Skin: normal inspection, warm/dry Medical Decision Making Diagnostic Impression: Primary Impression: Uncontrolled seizures Qualified Codes: R56.9 - Unspecified convulsions Additional Impression: Neck pain ER Course Patient presents with generalized tonoclonic seizure history of seizures. Differential includes subtherapeutic medication level, electrolyte imbalance, breakthrough seizure amongst others. Based on her neurologic exam right now CT the head is not indicated. She'll be evaluated EKG, chest x-ray and labs including phenobarbital level to check for Prelone. We'll be given a dose of Ativan and also a dose of Lamictal as apparently it's uncertain whether she's been able to keep up with that medication. Patient had 2 more seizures before Ativan was given. After Ativan no more seizure activity. She was complaining about more pain in her neck. Morphine was given. This very complicated patient on potentially 3 different anticonvulsants with uncontrolled seizures. She will needs to be admitted to the hospital to telemetry in order to ascertain proper balance of her anticonvulsant medication. Also the nature the neck pain needs to be evaluated. Discussed with Dr. Wynn. Patient had another seizure. Ativan given. Had episode of jerking of R shoulder, responsive at time. Ativan given (0:15). Neck x-rays suggest muscle spasm. Patient treated for pain again. Because of uncontrolled seizures, patient transferred for continued treatment. Laboratory Tests Test 12/22/17 21:50 White Blood Count 10.4 K/UL (4.8-10.8) Red Blood Count 3.86 M/UL (4.20-5.40) L Hemoglobin 9.8 G/DL (12.0-16.0) L Hematocrit 31.3 % (37.0-47.0) L Mean Corpuscular Volume 81 FL (80-99) Mean Corpuscular Hemoglobin 25.5 PG (27.0-31.0) L Mean Corpuscular Hemoglobin Concent 31.5 G/DL (32.0-36.0) L Red Cell Distribution Width 14.7 % (11.6-14.8) Platelet Count 437 K/UL (150-450) Mean Platelet Volume 6.0 FL (6.5-10.1) L Neutrophils (%) (Auto) 64.5 % (45.0-75.0) Lymphocytes (%) (Auto) 26.5 % (20.0-45.0) Monocytes (%) (Auto) 4.9 % (1.0-10.0) Eosinophils (%) (Auto) 3.4 % (0.0-3.0) H Basophils (%) (Auto) 0.6 % (0.0-2.0) Urine Color Yellow Urine Appearance Cloudy Urine pH 5 (4.5-8.0) Urine Specific [place] 1.020 (1.005-1.035) Urine Protein 3+ (NEGATIVE) H Urine Glucose (UA) Negative (NEGATIVE) Urine Ketones 1+ (NEGATIVE) H Urine Blood 5+ (NEGATIVE) H Urine Nitrite Negative (NEGATIVE) Urine Bilirubin 1+ (NEGATIVE) H Urine Ictotest Negative (NEGATIVE) Urine Urobilinogen 1 MG/DL (0.0-1.0) H Urine Leukocyte Esterase 2+ (NEGATIVE) H Urine RBC 0-2 /HPF (0 - 2) Urine WBC 2-4 /HPF (0 - 2) Urine Squamous Epithelial Cells Many /LPF (NONE/OCC) H Urine Bacteria Many /HPF (NONE) H Urine HCG, Qualitative Negative (NEGATIVE) Sodium Level 140 MMOL/L (136-145) Potassium Level 4.0 MMOL/L (3.5-5.1) Chloride Level 105 MMOL/L (98-107) Carbon Dioxide Level 27 MMOL/L (21-32) Anion Gap 8 mmol/L (5-15) Blood Urea Nitrogen 9 mg/dL (7-18) Creatinine 0.8 MG/DL (0.55-1.30) Estimate Glomerular Filtration Rate > 60 mL/min (>60) Glucose Level 148 MG/DL (74-106) H Calcium Level 8.9 MG/DL (8.5-10.1) Total Bilirubin 0.2 MG/DL (0.2-1.0) Aspartate Amino Transferase (AST) 10 U/L (15-37) L Alanine Aminotransferase (ALT) 16 U/L (12-78) Alkaline Phosphatase 68 U/L (46-116) Total Creatine Kinase 58 U/L (26-308) Total Protein 7.4 G/DL (6.4-8.2) Albumin 3.5 G/DL (3.4-5.0) Globulin 3.9 g/dL Albumin/Globulin Ratio 0.9 (1.0-2.7) L Urine Opiates Screen Negative (NEGATIVE) Acetaminophen Level 3 MCG/ML (10-30) L Urine Barbiturates Screen Positive (NEGATIVE) H Phencyclidine (PCP) Screen Negative (NEGATIVE) Urine Amphetamines Screen Negative (NEGATIVE) Phenobarbital Level 8.6 ug/mL (15-40) L Urine Benzodiazepines Screen Negative (NEGATIVE) Urine Cocaine Screen Negative (NEGATIVE) Urine Marijuana (THC) Screen Positive (NEGATIVE) H Serum Alcohol < 3 mg/dL EKG Diagnostic Results Rate: normal Rhythm: NSR ST Segments: no acute changes Rhythm Strip Diag. Results EP Interpretation: yes Rhythm: NSR, no PVC's, no ectopy Chest X-Ray Diagnostic Results Chest X-Ray Diagnostic Results : Chest X-Ray Ordered: Yes # of Views/Limited/Complete: 1 View Indication: Chest Pain Interpretation: no consolidation, no effusion, no pneumothorax Impression: No acute disease Electronically Signed by: Electronically signed by Raimundo Del Valle MD Other X-Ray Diagnostic Results Other X-Ray Diagnostic Results : X-Ray ordered: c spine # of Views/Limited Vs Complete: 4 View Indication: Pain EP Interpretation: Yes Interpretation: no dislocation, no soft tissue swelling, no fractures, other - reverse curve Impression: Other Electronically Signed by: Raimundo Del Valle MD Last Vital Signs Date Time Temp Pulse Resp B/P (MAP) Pulse Ox O2 Delivery O2 Flow Rate FiO2 12/23/17 02:16 97.9 75 18 116/75 100 Nasal Cannula 2.0 Status: improved Disposition: XFER SHT-TRM HOSP Condition: Serious Raimundo Del Valle MD Dec 22, 2017 21:45
[2017-12-22 22:14] LABS: BASOPHILS % (AUTO) 0.6 % (0.0-2.0); EOSINOPHILS % (AUTO) 3.4 % (0.0-3.0); HEMATOCRIT 31.3 % (37.0-47.0); HEMOGLOBIN 9.8 G/DL (12.0-16.0); LYMPHOCYTES % (AUTO) 26.5 % (20.0-45.0); MEAN CORPUSCULAR VOLUME 81 FL (80-99); MONOCYTES % (AUTO) 4.9 % (1.0-10.0); NEUTROPHILS % (AUTO) 64.5 % (45.0-75.0); PLATELET COUNT 437 K/UL (150-450); RED BLOOD COUNT 3.86 M/UL (4.20-5.40); RED CELL DISTRIBUTION WIDTH 14.7 % (11.6-14.8); WHITE BLOOD COUNT 10.4 K/UL (4.8-10.8)
[2017-12-22 22:16] LABS: APPEARANCE,URINE CLOUDY; BILIRUBIN, URINE 1+ (NEGATIVE); GLUCOSE, URINE (UA) NEGATIVE (NEGATIVE); KETONES,URINE 1+ (NEGATIVE); LEUKOCYTE ESTERASE ,URINE 2+ (NEGATIVE); NITRITE,URINE NEGATIVE (NEGATIVE); PH,URINE 5 (4.5-8.0); PROTEIN,URINE 3+ (NEGATIVE); UROBILINOGEN,URINE 1 MG/DL (0.0-1.0)
[2017-12-22 22:20] LABS: COLOR,URINE YELLOW
[2017-12-22 22:28] LABS: ANION GAP 8 mmol/L (5-15); BLOOD UREA NITROGEN 9 mg/dL (7-18); CALCIUM 8.9 MG/DL (8.5-10.1); CARBON DIOXIDE 27 MMOL/L (21-32); CHLORIDE 105 MMOL/L (98-107); CREATININE 0.8 MG/DL (0.55-1.30); SODIUM 140 MMOL/L (136-145)
[2017-12-22 22:35] LABS: ALANINE AMINOTRANSFERASE 16 U/L (12-78); ALBUMIN 3.5 G/DL (3.4-5.0); ALBUMIN/GLOBULIN RATIO 0.9 (1.0-2.7); ALKALINE PHOSPHATASE 68 U/L (46-116); ASPARTATE AMINO TRANSFERASE 10 U/L (15-37); BILIRUBIN,TOTAL 0.2 MG/DL (0.2-1.0); CREATINE KINASE 58 U/L (26-308)
--- NOTE | 2017-12-22 22:45 | Diagnostic Imaging Report ---
EXAM: XR Chest, 1 View CLINICAL HISTORY: PAIN TECHNIQUE: Frontal view of the chest. COMPARISON: No relevant prior studies available. FINDINGS: Lungs: No consolidation. Pleural space: Unremarkable. No pneumothorax. Heart: Mild cardiomegaly. Mediastinum: Unremarkable. Bones/joints: No acute fracture. IMPRESSION: No acute cardiopulmonary disease.
--- NOTE | 2017-12-22 22:46 | Diagnostic Imaging Report ---
EXAM: XR Cervical Spine, 4 or 5 Views CLINICAL HISTORY: PAIN TECHNIQUE: Frontal, lateral and oblique views of the cervical spine. COMPARISON: No relevant prior studies available. FINDINGS: Vertebrae: No acute fracture. Normal alignment. Disc spaces: No significant narrowing. Soft tissues: No radiodense foreign body. IMPRESSION: No fracture or malalignment.
[2017-12-22 22:55] VITALS: BP 128/79
[2017-12-22] MEDS ORDERED: Morphine Sulfate 4mg/ml Inj (IV/IM USE ONLY) IVP ONE (23:15)
[2017-12-23] MEDS ORDERED: LORazepam Inj 2mg/ml 1ml IV ONE (00:30)
[2017-12-23 00:38] VITALS: BP 102/74
[2017-12-23] MEDS ORDERED: Morphine Sulfate 4mg/ml Inj (IV/IM USE ONLY) IVP ONE (02:15)
[2017-12-23 02:16] VITALS: BP 116/75
== END 2017-12-23 02:41 | disposition short-term general hospital (02) ==
LOC: EMR 21:43
DX: G40.409 Other generalized epilepsy and epileptic syndromes, not intractable, without status epilepticus (principal); M54.2 Cervicalgia; M25.511 Pain in right shoulder; I10 Essential (primary) hypertension; E11.9 Type 2 diabetes mellitus without complications; E78.5 Hyperlipidemia, unspecified
CPT/HCPCS: 36415; 71045; 72040; 80053; 80184; 80307; 80329; 81003; 81025; 82550; 82962; 85025; 87086; 93005; 96374; 96375; 96376; 99285; J1885; J2270; J2405; J7040

== ENCOUNTER → 2018-11-11 | Emergency (ER) | payer MEDICAID ==
[~2018-11-11] VITALS: Ht 144.8 cm; Wt 84.8 kg
[~2018-11-11] MED LIST changes: +AUGMENTIN 875-1 EAC1 ORAL; +IBUPROFEN600 MG ORAL
[2018-11-11 17:00] VITALS: BP 104/66
--- NOTE | 2018-11-11 17:10 | NUR ---
ED Nurse Note: Pt walked in due to left index finger swelling and pain x 3 days. Pt denies injury to her finger and states she just woke up with it. AAOx 4 and ambulatory.
--- NOTE | 2018-11-11 17:49 | Emergency Room Report ---
History of Present Illness General Chief Complaint: Pain Source: Patient Present Illness HPI 38-year-old female with history of diabetes type 2 currently controlled here complaining of pain and swelling of her left index finger x3 days. Patient does not recall whether she had a fall or injury. Does not recall whether she was bit by an insect. Rating the pain 7 out of 10 without radiation denying tingling and numbness. Patient has full range of motion. No motor or sensory deficits are noted. No obvious signs of puncture wound or blunt trauma noted. No signs of penetrating trauma noted. Her finger is slightly warm to touch with edema. Not tender to palpation. Denies chest pain, shortness of breath, palpitation, abdominal pain, and all other associated symptoms. Denies fever and chills. Has taken ibuprofen with minimal relief of pain. Allergies: Coded Allergies: No Known Allergies (Verified , 09/29/07) UNABLE TO ASSESS (Unverified , 10/11/16) Patient History Past Medical History: see triage record Past Surgical History: unable to obtain Pertinent Family History: none Last Menstrual Period: 11/08/18 Now: No Immunizations: UTD Reviewed Nursing Documentation: PMH: Agreed; PSxH: Agreed Nursing Documentation-PMH Past Medical History: No History, Except For Hx Hypertension: Yes - hypertension, hyperlipidemia, Hx Diabetes: Yes Hx Cancer: No Hx Gastrointestinal Problems: No Hx Neurological Problems: Yes - Seizure Hx Seizures: Yes Hx Dizziness: Yes Hx Headaches: Yes Review of Systems All Other Systems: negative except mentioned in HPI Physical Exam Vital Signs Date Time Temp Pulse Resp B/P (MAP) Pulse Ox O2 Delivery O2 Flow Rate FiO2 11/11/18 17:00 98.6 101 18 104/66 (79) 96 Room Air Sp02 EP Interpretation: reviewed, normal General Appearance: no apparent distress, alert, GCS 15, non-toxic Head: normocephalic, atraumatic Eyes: bilateral eye normal inspection, bilateral eye PERRL ENT: hearing grossly normal, normal pharynx, no angioedema, normal voice Neck: full range of motion, supple, supple/symm/no masses Respiratory: chest non-tender, lungs clear, normal breath sounds, no retraction , no wheezing, speaking full sentences Cardiovascular #1: regular rate, rhythm, no edema, no murmur, normal capillary refill Cardiovascular #2: 2+ radial (R), 2+ radial (L) Gastrointestinal: normal bowel sounds, non tender, soft, non-distended, no guarding, no rebound Genitourinary: normal inspection, no CVA tenderness Musculoskeletal: back normal, digits/nails normal, gait/station normal, normal range of motion, non-tender, no calf tenderness, swelling - left index finger Neurologic: alert, oriented x3, responsive, motor strength/tone normal, sensory intact, speech normal Psychiatric: judgement/insight normal, memory normal, mood/affect normal, no suicidal/homicidal ideation Skin: no rash, warm/dry Lymphatic: no adenopathy Medical Decision Making PA Attestation All my diagnosis and treatment plans were reviewed ad discussed with my supervising physician Dr. Barton Diagnostic Impression: Primary Impression: Cellulitis, finger ER Course 38-year-old female with history of diabetes type 2 currently controlled here complaining of pain and swelling of her left index finger x3 days. Patient does not recall whether she had a fall or injury. Does not recall whether she was bit by an insect. Rating the pain 7 out of 10 without radiation denying tingling and numbness. Patient has full range of motion. No motor or sensory deficits are noted. No obvious signs of puncture wound or blunt trauma noted. No signs of penetrating trauma noted. Her finger is slightly warm to touch with edema. Not tender to palpation. Denies chest pain, shortness of breath, palpitation, abdominal pain, and all other associated symptoms. Denies fever and chills. Has taken ibuprofen with minimal relief of pain. Ddx considered but are not limited to : Cellulitis, tendon infection, superficial infection, abscess, tendonitis, tenosynovitis Vital signs: are WNL, pt. is afebrile H&PE are most consistent with:cellulitis of finger ORDERS:xray left hand, ibuprofen, augmentin ED INTERVENTIONS: None required at this time. DISCHARGE: At this time pt. is stable for d/c to home. Will provide printed patient care instructions, and any necessary prescriptions. Care plan and follow up instructions have been discussed with the patient prior to discharge. I advised the patient to follow-up with her primary care provider and also with orthopedic clinic for following up with hand specialist. Taking the medication as directed and if worsening symptoms, fever and chills return to the emergency room Other X-Ray Diagnostic Results Other X-Ray Diagnostic Results : X-Ray ordered: left hand # of Views/Limited Vs Complete: 3 View Indication: Pain EP Interpretation: Yes PA Xray: Interpretation reviewed, by supervising MD, and agrees with findings. Interpretation: no dislocation, no soft tissue swelling, no fractures Impression: No acute disease Electronically Signed by: Samy Yuan PA-C Last Vital Signs Date Time Temp Pulse Resp B/P (MAP) Pulse Ox O2 Delivery O2 Flow Rate FiO2 11/11/18 17:00 98.6 101 18 104/66 96 Room Air Disposition: HOME, SELF-CARE Condition: Stable Scripts Ibuprofen* (MOTRIN*) 600 Mg Tablet 600 MG ORAL Q6H PRN for For Pain, #30 TAB Prov: Samy Simmons 11/11/18 Amoxicillin/Potassium Clav 875-125* (AUGMENTIN 875-125 TABLET*) 1 Each Tablet 1 TAB ORAL TWICE A DAY for 10 Days, #20 TAB Prov: Samy Simmons 11/11/18 Patient Instructions: Cellulitis, [id number] Additional Instructions: Take medication follow-up with your primary care provider and sports medicine specialist if worsening symptoms return to the emergency room Samy Simmons Nov 11, 2018 17:49
[2018-11-11 17:57] VITALS: BP 112/75
--- NOTE | 2018-11-11 17:57 | NUR ---
ER DISCHARGE NOTE: Patient is cleared to be discharged per PA, pt is aox4, on room air, with stable vital signs. pt was given dc and prescription instructions, pt was able to verbalize understanding, pt id band removed without complications. pt is able to ambulate with steady gait. pt took all belongings and left with her family member.
--- NOTE | 2018-11-12 10:47 | Diagnostic Imaging Report ---
Indication: Left hand pain Technique: 3 views left hand Comparison: none Findings: No acute fractures. No dislocations. The joint spaces are preserved. Impression: Negative
== END | disposition home or self-care (01) ==
LOC: EMR 21:52
DX: L03.012 Cellulitis of left finger (principal); E11.9 Type 2 diabetes mellitus without complications; I10 Essential (primary) hypertension; E78.5 Hyperlipidemia, unspecified
CPT/HCPCS: 73130; Z7502; 99283